=== PATIENT | male | born 1955 | race Caucasian/White ===

== ENCOUNTER → 2022-10-19 12:22 | Outpatient (CLI) | payer OTHER, SELFPAY ==
--- NOTE | 2022-10-19 | DI.ECHO.S_ITS ---
[place] [facility]---------+ [facility] +---------+ : : [address] : [address] [address] : : : : [id number] : : : : Phone: [phone]+ Echocardiogram Report + + :Name: FABIÁN MOREIRA Study Date: 10/19/2022 Height: 71 in : :[facility] ReadingLocation: Weight: 320 lb : : Gender: Male BSA: 2.6 m2 : :: 1955 Age: 67 yrs BP: 138/80 mmHg: :Reason For Study: GENERAL ADULT MEDICAL EXAMINATION : :Ordering Physician: ROBINA, : :STEFFANY Performed By: Lo iKng : :Referring: STEFFANY QUARLES : + + Interpretation Summary 1) Mildly increased left ventricular thickness (concentric) with normal size, normal wall motion, and normal systolic function (EF 65-70%). 2) Normal right ventricular size and function. 3) No significant valvular abnormalities. 4) No prior Echo available for comparison. Procedure: A two-dimensional transthoracic echocardiogram with color flow and Doppler was performed. The study quality was technically difficult. There is no prior echocardiogram noted for this patient. The patient was in sinus rhythm with heart rates between 68-81 bpm during the exam. Left Ventricle: The left ventricle is normal in size. There is mild concentric left ventricular hypertrophy. The ejection fraction is estimated to be 65-70%. Left ventricular systolic function appears normal without focal wall motion abnormalities. Diastolic function could not be accurately assessed due to contradictory data. Right Ventricle: The right ventricle is normal in size and function. Atria: The left atrial size is normal. Right atrium not well visualized. Mitral Valve: The mitral valve leaflets appear mildly thickened, but open well. The mitral valve mean gradient is 2.9 mmHg. There is no mitral valve stenosis. There is trace mitral regurgitation. Aortic Valve: The aortic valve is not well visualized. There is no aortic valve stenosis. No aortic regurgitation is present. Tricuspid Valve: The tricuspid valve is not well visualized, but is grossly normal. There is trace tricuspid regurgitation. Pulmonary artery pressures cannot be estimated because of the lack of a measurable TR jet velocity. Pulmonic Valve: The pulmonic valve is not well visualized. There is trace pulmonic regurgitation. Great Vessels: The dimensions of the ascending aorta are normal. The IVC is of normal diameter and collapses greater than 50% with a sniff. This suggests a low right atrial pressure of 3 mm Hg. Pericardium/ Pleura There is an anterior echo-free space consistent with a fat pad. There is no pericardial effusion. There is no pleural effusion. MMode/2D Measurements & Calculations LVIDd: 5.7 cm LVOT diam: 2.1 cm LVIDs: 3.6 cm asc Aorta Diam: 3.6 cm FS: 36.1 % IVSd: 0.91 cm LVPWd: 0.84 cm LV gann. diameter/BSA (cm/m^2): 2.2 LV sys. diameter/BSA (cm/m^2): 1.4 LA A2 area: 24.5 cm2 IVC diam: 1.6 cm LA A4 area: 19.8 cm2 LA length (vol): 5.8 cm LA vol: 71.6 ml LA vol index: 27.8 ml/m2 RVD1 (basal): 3.8 cm RVD2 (mid): 3.2 cm TAPSE: 2.1 cm Doppler Measurements & Calculations Ao V2 max: 167.5 cm/sec LVOT Max Karl: 116.8 cm/sec Ao V2 mean: 126.5 cm/sec LV V1 max P.5 mmHg Ao max P.2 mmHg LV V1 VTI: 25.0 cm Ao mean P.8 mmHg MICHA(I,D): 2.9 cm2 Ao V2 VTI: 30.3 cm MICHA(V,D): 2.5 cm2 sev ratio: 0.83 MICHA indexed to BSA (cm^2/m^2): 1.1 MV E max karl: 87.1 cm/sec PA V2 max: 118.4 cm/sec MV A max karl: 123.0 cm/sec PA V2 mean: 71.5 cm/sec MV E/A: 0.71 PA mean P.4 mmHg Med Peak E' Karl: 6.7 cm/sec PA pr(Accel): 36.2 mmHg E/E' med: 12.9 Lat Peak E' Karl: 5.1 cm/sec E/E' lat: 17.2 E/e' average: 15.0 MV dec time: 0.34 sec MVA(VTI): 2.8 cm2 MV V2 mean: 81.0 cm/sec SV(LVOT): 89.3 ml MV mean P.9 mmHg MV V2 VTI: 32.3 cm Reading Physician:02:27 PM
== END ==
PROVIDERS: Referring Provider Orthopaedic Surgery; Visit Provider Orthopaedic Surgery
DX: Z00.00 Encounter for general adult medical examination without abnormal findings (principal)
CPT/HCPCS: 93306